=== PATIENT | male | born 1990 | race Caucasian/White ===

== ENCOUNTER 2017-04-16 04:16 | Emergency (ER) | payer OTHER ==
[~2017-04-16] VITALS: Ht 185.4 cm; Wt 76.2 kg
[2017-04-16 06:30] VITALS: BP 120/79
== END 2017-04-16 06:36 | disposition home or self-care (01) ==
LOC: ER 04:20
DX: S01.412A Laceration without foreign body of left cheek and temporomandibular area, initial encounter (principal); Y09 Assault by unspecified means; Y93.89 Activity, other specified; Y99.8 Other external cause status; Y92.89 Other specified places as the place of occurrence of the external cause
CPT/HCPCS: 70450; 70486